=== PATIENT | male | born 2000 | race Caucasian/White ===

== ENCOUNTER 2023-11-14 18:56 | Emergency (ER) | payer SELFPAY ==
[~2023-11-14] VITALS: Ht 172.7 cm; Wt 75.0 kg
[2023-11-14 19:10] VITALS: O2SAT 99
[2023-11-14] MEDS: BACITRACIN ZINC OINT UDPKT TOP ONE (19:59)
[2023-11-14] MEDS: LIDOCAINE HCL/PF 1% 10 MG/ML 5ML VIAL INFIL ONE (19:59)
[2023-11-14] MEDS: TETANUS, DIPHTHERIA, PERTUSSIS VAC/PF 0.5ML (>10YR OLD) IM ONE (20:00)
[2023-11-14 20:58] VITALS: BP 128/77; PULSE 60; RESP 18; TEMP 98.2
== END 2023-11-14 20:59 | disposition home or self-care (01) ==
LOC: ER 18:56
DX: S01.01XA Laceration without foreign body of scalp, initial encounter (principal); X58.XXXA Exposure to other specified factors, initial encounter; Y93.89 Activity, other specified; Y92.89 Other specified places as the place of occurrence of the external cause; Y99.8 Other external cause status
CPT/HCPCS: 90715; 12002; 90471; 99283; J3490; Z7610 ×5

== ENCOUNTER 2023-11-16 17:51 | Emergency (ER) | payer SELFPAY ==
[~2023-11-16] VITALS: Ht 175.3 cm; Wt 81.6 kg
[2023-11-16 18:04] VITALS: BP 145/54; PULSE 54; RESP 16; TEMP 98; O2SAT 99
== END 2023-11-16 18:49 | disposition home or self-care (01) ==
LOC: ER 17:51
DX: S01.01XD Laceration without foreign body of scalp, subsequent encounter (principal); X58.XXXD Exposure to other specified factors, subsequent encounter
CPT/HCPCS: 99281

== ENCOUNTER 2023-11-26 15:20 | Emergency (ER) | payer SELFPAY ==
[~2023-11-26] VITALS: Ht 170.2 cm; Wt 75.0 kg
[2023-11-26 15:25] VITALS: BP 136/88; PULSE 96; RESP 18; TEMP 99.3; O2SAT 99
== END 2023-11-26 16:40 | disposition home or self-care (01) ==
LOC: ER 15:20
DX: S01.01XD Laceration without foreign body of scalp, subsequent encounter (principal); X58.XXXD Exposure to other specified factors, subsequent encounter
CPT/HCPCS: 99281